=== PATIENT | female | born 1985 | race Caucasian/White ===

== ENCOUNTER 2024-01-07 11:08 | Outpatient (CLI) | payer OTHER, SELFPAY ==
--- NOTE | 2024-01-07 11:15 | CRLHL7_ITS ---
For Patients: As a result of the Century Cures Act, medical imaging exams and procedure reports are released immediately into your electronic medical record. You may view this report before your referring provider. If you have questions, please contact your health care provider. ULTRASOUND-GUIDED BREAST BIOPSY CLINICAL HISTORY: Indeterminate solid mass. COMPARISON STUDIES: 12/22/2023. TECHNIQUE: Real-time ultrasound with image documentation was used for targeting the breast lesion. Core biopsy specimens were obtained using an automated gun with a 18-gauge biopsy needle. CONSENT and TIME OUT: The procedure, risks, and alternatives were explained to the patient and a consent was signed. [place] Protocol was followed including pre-procedure verification that relevant information/documentation was available, reviewed and properly matched to the patient; consent accurate and complete; and equipment and supplies available. Time Out was conducted just prior to starting procedure to verify the four required elements: patient identity, correct side/site marked (if applicable), procedure, relevant images/results properly labeled and displayed (if applicable). PROCEDURE: The patient was positioned supine on the ultrasound table. The breast was prepped with ChloraPrep. 8 cc of 1 percent lidocaine used for local anesthesia. Core samples were obtained. A clip was not placed. The specimens were placed in 10% formalin and sent to the pathology department. Pressure was held on the biopsy site until all bleeding subsided. The skin incision was closed with Steri-Strips. An ice pack was positioned over the biopsy site. Post-biopsy instructions were reviewed with the patient, and a written copy was given to her. LATERALITY: LEFT breast. LESION: Heterogeneous hypoechoic solid mass measuring 3.5 x 2.7 x 1.1 cm at 7 o`clock 2 cm from the nipple. SUSPICION FOR MALIGNANCY: Low, fibroadenoma versus phyllodes. NUMBER OF SAMPLES: 5. IMPRESSION: Ultrasound-guided breast biopsy. When the pathology report is available, an addendum to this report will be made. ACR not applicable Dictated by Sahil Marin MD @ 01/08/2024 10:13:09 AM jj/Dictated by: Sahil Marin MD @ 01/08/2024 10:13:00 AM (Electronically Signed)
== END 2024-01-07 11:09 | disposition home or self-care (01) ==
PROVIDERS: Visit Provider Student in an Organized Health Care Education/Training Program
DX: N63.20 Unspecified lump in the left breast, unspecified quadrant (principal); N62 Hypertrophy of breast
CPT/HCPCS: 19083; 88305; A4648; A4649

== ENCOUNTER 2024-02-29 09:00 | Day surgery (SDC) | payer OTHER, SELFPAY ==
[2024-02-29] MEDS: LACTATED RINGERS 1000 ML 1,000 ML 100 ML IV (09:05)
[2024-02-29 09:23] VITALS: BP 113/71; PULSE 74; RESP 16; TEMP 37.4; O2SAT 97; BMI 23.2
[2024-02-29 09:26] LABS: Ur HCG Qualitative* Negative (Negative)
[2024-02-29] MEDS: SODIUM CHLORIDE 0.9 % (FLUSH) 10 ML SYRINGE IVF (09:34)
--- NOTE | 2024-02-29 10:15 | CRLHL7_ITS ---
For Patients: As a result of the Cures Act, medical imaging exams and procedure reports are released immediately into your electronic medical record. You may view this report before your referring provider. If you have questions, please contact your health care provider. BREAST WIRE LOCALIZATION USING ULTRASOUND GUIDANCE CLINICAL HISTORY: Palpable lump, Pash, surgical excision LATERALITY: LEFT breast. LESION: Solid mass 3.5 x 2.7 x 1.1 cm at 7 o`clock 2 cm from the nipple. LOCALIZATION WIRE: [place] hookwire. TECHNIQUE: The localization wire was placed using real-time ultrasound guidance with image documentation. Cranial-caudal and medial-lateral digital mammograms were obtained after localization wire placement. CONSENT and TIME OUT: The procedure, risks, and alternatives were explained to the patient and a consent was signed. [place] Protocol was followed including pre-procedure verification that relevant information/documentation was available, reviewed and properly matched to the patient; consent accurate and complete; and equipment and supplies available. Time Out was conducted just prior to starting procedure to verify the four required elements: patient identity, correct side/site marked (if applicable), procedure, relevant images/results properly labeled and displayed (if applicable). PROCEDURE: The skin was prepped with ChloraPrep and 6 cc of 1% lidocaine was injected for local anesthesia. The localization wire was placed within or near the targeted breast lesion using ultrasound guidance. The patient tolerated the procedure well. PROXIMITY OF WIRE TO LESION: The wire is present within the lesion. IMPRESSION: Successful breast wire localization. ACR not applicable Dictated by Sahil Marin MD @ 02/29/2024 10:49:48 AM jj/Dictated by: Sahil Marin MD @ 02/29/2024 10:49:00 AM (Electronically Signed)
--- NOTE | 2024-02-29 10:49 | W.PM.H&PU ---
History & Physical Update History & Physical Update H&P Reviewed and patient assessed: No changes noted
--- NOTE | 2024-02-29 10:50 | PM.GSPRC ---
Operative Note Date of procedure: 02/29/24 Pre-op diagnosis: Left breast mass, biopsy showing PASH, discordant from imaging results Post-op diagnosis: Same Type of Procedure: Left breast excisional biopsy with preoperative wire localization Indications: The patient is 38-year-old female who noted a left breast mass. Imaging showed a 2 by 3.3 cm mass in her left breast. Fibroadenoma versus phyllodes tumor was suspected. Ultrasound-guided biopsy was recommended. This returned as pseudo angiomatous stromal hyperplasia. Because of the discordant results, excisional biopsy was recommended. The patient agreed to proceed. Procedure Description: After discussing the risks and benefits of the procedure, the patient signed informed consent.? The operative site was marked and the patient was brought to the operating room and placed on the operating table in supine position.? Care was taken to pad the patient's pressure points.?? The patient was then given anesthesia by anesthesia.?? The operative site was then prepped and draped in the usual sterile fashion.? A time-out was then performed. Local anesthetic was injected into the skin and subcutaneous tissue around the lower breast at the areolar border. A curvilinear incision was then made along the inferior border of the areola. Dissection was taken down into the subcutaneous fat and breast tissue using cautery. The mass was palpable, however quite mobile. The wire was identified and pulled through the skin incision. This was used to help tether the mass, making it easier to palpate, and dissect free from the surrounding breast tissue using cautery. Care was taken to stay on the mass and avoid taking excess breast tissue, as the patient has a very small breast. Once the mass was excised it was inked for orientation. It was then sent for x-ray. The x-ray showed the wire and the mass. Hemostasis appeared excellent. The wound was then closed with 3-0 Vicryl dermal and 4-0 Monocryl running subcuticular suture. Sterile dressings were then applied. ? The patient was then woken and transported to the recovery area in stable condition. ? The patient tolerated the procedure well. Findings: Left breast mass located at 7:00 a.m.. Anesthesia: MAC Surgeon: Leeann Bello MD Estimated blood loss (mL): 5 Specimen: Other Additional Specimen Information: Left breast mass Condition: stable Disposition: same day
--- NOTE | 2024-02-29 11:00 | CRLHL7_ITS ---
For Patients: As a result of the Century Cures Act, medical imaging exams and procedure reports are released immediately into your electronic medical record. You may view this report before your referring provider. If you have questions, please contact your health care provider. PLEASE SEE ULTRASOUND-GUIDED LEFT BREAST WIRE LOCALIZATION PERFORMED SAME DAY CRL:[email or web address] [email or web address]/Dictated by: Sahil Marin MD @ 02/29/2024 10:49:00 AM (Electronically Signed)
[2024-02-29] MEDS: CEFAZOLIN 1 GM inj IVP (11:06)
[2024-02-29] MEDS: LIDOCAINE 1% MDV 20 ML INJECTION (11:15)
[2024-02-29] MEDS: BUPIVACAINE 0.25% 30 ML INJECTION (11:15)
--- NOTE | 2024-02-29 11:41 | CRLHL7_ITS ---
For Patients: As a result of the Cures Act, medical imaging exams and procedure reports are released immediately into your electronic medical record. You may view this report before your referring provider. If you have questions, please contact your health care provider. LEFT BREAST SPECIMEN RADIOGRAPH CLINICAL HISTORY: Surgical excision. COMPARISON: 12/22/2023. FINDINGS: Two views of the specimen submitted. Specimen contains the excised mass along with the localization wire. IMPRESSION: Specimen contains the localization wire and excised mass. ACR not applicable Dictated by Sahil Marin MD @ 02/29/2024 12:05:35 PM jj/Dictated by: Sahil Marin MD @ 02/29/2024 12:05:00 PM (Electronically Signed)
[2024-02-29 11:55] VITALS: BP 91/53; PULSE 56; RESP 16; TEMP 37.5; O2SAT 95
--- NOTE | 2024-02-29 11:58 | W.ANESCHARGE ---
Anesthesia Charges Start Date/Time Anesthesia Start Date: 02/29/24 Anesthesia Start Time: 10:53 Stop Date/Time Anesthesia Stop Date: 02/29/24 Anesthesia Stop Time: 11:57
[2024-02-29 12:00] VITALS: BP 87/55; PULSE 67; RESP 16; O2SAT 96
[2024-02-29 12:15] VITALS: BP 90/56; PULSE 53; RESP 16; O2SAT 96
== END 2024-02-29 12:38 | disposition home or self-care (01) ==
PROVIDERS: Visit Provider Surgery
PROC: (CPT 19125; principal; 2024-02-29 11:00)
PROC: (CPT 19125; 2024-02-29 11:00)
DX: D24.2 Benign neoplasm of left breast (principal); N64.89 Other specified disorders of breast; N63.24 Unspecified lump in the left breast, lower inner quadrant
CPT/HCPCS: 19125; 00400; 19285; 36415; 77065; 81025; 84703; 88307; C1769; J0665; J0690; J1100; J1885; J2250; J2405; J2704; J3010; J7120